=== PATIENT | male | born 1950 | race Caucasian/White ===

== ENCOUNTER 2021-05-27 19:55 | Emergency (ER) | payer OTHER ==
[~2021-05-27] VITALS: Ht 182.9 cm; Wt 104.3 kg
[2021-05-27] MEDS ORDERED: FLONASE 0.05%50 MCG NARES (21:33)
[2021-05-27] MEDS ORDERED: METOPROLOL TART25 MG PO (21:34)
[2021-05-27] MEDS ORDERED: CREON DR 24,001 EACH PO (21:34)
[2021-05-27] MEDS ORDERED: RESTASIS1 EACH OPHTHALMIC (21:34)
[2021-05-27] MEDS ORDERED: PROTONIX40 M2 PO (21:34)
[2021-05-27] MEDS ORDERED: LOSARTAN POTASS50 MG PO (21:35)
[2021-05-27] MEDS ORDERED: TAMSULOSIN HCL0.4 MG PO (21:35)
[2021-05-27] MEDS ORDERED: LIPITOR 40 MG T40 M1 PO (21:35)
[2021-05-27] MEDS ORDERED: AMLODIPINE BESY10 MG PO (21:35)
[2021-05-27] MEDS ORDERED: AUGMENTIN 875-1 EACH PO (22:47)
[2021-05-27 23:08] VITALS: BP 124/77
== END 2021-05-27 23:08 | disposition home or self-care (01) ==
LOC: ER 19:55
DX: J01.10 Acute frontal sinusitis, unspecified (principal); Z20.822 Contact with and (suspected) exposure to COVID-19; I10 Essential (primary) hypertension; E78.00 Pure hypercholesterolemia, unspecified; Z79.899 Other long term (current) drug therapy; Z79.891 Long term (current) use of opiate analgesic